=== PATIENT | female | born 1940 | race Caucasian/White ===

== ENCOUNTER → 2016-12-07 | Outpatient (CLI) | payer MEDICARE, OTHER ==
[~2016-12-07] MED LIST: DOXY100T PO; PRED20 PO; Z.0.NO CURRENT MEDS
[2016-12-07 10:20] LABS: HEMATOCRIT 42.6 % (35.0-46.0); MEAN CELL VOLUME 90.9 FL (80.0-100.0); MEAN CORPUSCULAR HEMOGLOBIN 30.6 PG (27.0-34.0); MEAN CORPUSCULAR HGB CONC 33.7 % (32.0-36.0); PLATELET COUNT 233 TH/MM3 (150-450); RED BLOOD COUNT 4.68 MIL/MM3 (4.00-5.30); REVIEW FLAG FINAL; WHITE BLOOD COUNT 5.7 TH/MM3 (4.0-11.0)
[2016-12-07 10:47] LABS: ANION GAP 9 MEQ/L (5-15); AST (GOT) 13 U/L (15-37); BICARBONATE 27.4 MEQ/L (21.0-32.0); BLOOD UREA NITROGEN 12 MG/DL (7-18); CHLORIDE 104 MEQ/L (98-107); GLOMERULAR FILTRATION RATE 78 ML/MIN (>89); GLUCOSE,FASTING 100 MG/DL (74-99); POTASSIUM 3.7 MEQ/L (3.5-5.1); SODIUM (NA) 140 MEQ/L (136-145)
[2016-12-07 10:54] LABS: HEMOGLOBIN A1b 0.9 %; HEMOGLOBIN Ao 85.7 %; HEMOGLOBIN F 0.8 %; HEMOGLOBIN LA1C 1.9 %; HEMOGLOBIN P3 3.5 %
[2016-12-07 11:01] LABS: ALKALINE PHOSPHATASE 74 U/L (45-117); ALT (GPT) 16 U/L (10-53); LDL CHOLESTEROL 98 MG/DL (0-99); LDL CHOLESTEROL DIRECT 92 MG/DL (0-99); TOTAL BILIRUBIN ADULT 0.7 MG/DL (0.2-1.0)
== END ==
LOC: PLAB 08:33
PROVIDERS: ATTEND Family Medicine
DX: R53.83 Other fatigue (principal); E78.2 Mixed hyperlipidemia; R73.01 Impaired fasting glucose; I10 Essential (primary) hypertension
CPT/HCPCS: 36415; 80053; 80061; 83036; 83721; 84443; 85027